=== PATIENT | male | born 1970 ===

== ENCOUNTER 2018-10-13 23:04 | Emergency (ER) | payer SELFPAY ==
--- NOTE | 2018-10-13 23:37 | ED PDOC ---
HPI: Psych/Substance Abuse Time Seen by Provider: 10/13/18 23:20 Chief Complaint (Nursing): Alcohol Ingestion Chief Complaint (Provider): etoh History Per: Patient, EMS Additional Complaint(s): 48 y/o male brought in by EMS for public intoxication. Patient admits to drinking "a little wine" tonight. Patient denies acute medical or psychiatric complaints. Past Medical History Reviewed: Historical Data, Nursing Documentation, Vital Signs Vital Signs: Last Vital Signs Temp 97.9 F 10/13/18 23:07 Pulse 82 10/13/18 23:07 Resp 18 10/13/18 23:07 BP 120/92 H 10/13/18 23:07 Pulse Ox 99 10/13/18 23:07 - Medical History PMH: No Chronic Diseases - Surgical History Surgical History: No Surg Hx - Family History Family History: States: No Known Family Hx - Living Arrangements Living Arrangements: With Family - Allergies Allergies/Adverse Reactions: Allergies Allergy/AdvReac Type Severity Reaction Status Date / Time Unobtainable Allergy Verified 10/13/18 23:06 Review of Systems ROS Statement: Except As Marked, All Systems Reviewed And Found Negative Physical Exam - Reviewed Nursing Documentation Reviewed: Yes Vital Signs Reviewed: Yes - Physical Exam Appears: Positive for: Well, Non-toxic, No Acute Distress Head Exam: Positive for: ATRAUMATIC, NORMAL INSPECTION, NORMOCEPHALIC Skin: Positive for: Normal Color Eye Exam: Positive for: Normal appearance ENT: Positive for: Normal ENT Inspection Cardiovascular/Chest: Positive for: Regular Rate, Rhythm Respiratory: Positive for: Normal Breath Sounds Gastrointestinal/Abdominal: Positive for: Normal Exam Back: Positive for: Normal Inspection Extremity: Positive for: Normal ROM Neurologic/Psych: Positive for: Alert, Oriented (x2) - ECG O2 Sat by Pulse Oximetry: 99 - Progress ED Course And Treament: -accucheck 1:00 Patient sleeping; no distress 2:30 Patient sleeping; no distress 4:00 Patient sleeping; no distress 5:30 Patient awake, alert, oriented x3. Ambulating steady gait Stable for discharge Disposition - Clinical Impression Clinical Impression: Alcohol intoxication - Patient ED Disposition Is Patient to be Admitted: No Counseled Patient/Family Regarding: Studies Performed, Diagnosis, Need For Followup - Disposition Disposition: Routine/Home Disposition Time: 05:40 Condition: IMPROVED Instructions: Alcohol Use - When Is Drinking a Problem? Print Language: KAZAKH
[2018-10-14 05:44] VITALS: BP 116/78; PULSE 78; RESP 16; TEMP 98.6; O2SAT 98
== END 2018-10-14 05:42 | disposition home or self-care (01) ==
LOC: H.ER 23:04
DX: F10.129 Alcohol abuse with intoxication, unspecified (principal)